=== PATIENT | female | born 1945 | race African-American/Black ===

== ENCOUNTER 2017-01-19 09:04 | Observation (INO) | payer MEDICARE, BC ==
[2017-01-19] VITALS (10 sets, daily range): BP systolic 113–132; BP diastolic 58–77; PULSE 55–80; RESP 15–20; TEMP 98.3–98.6; O2SAT 94–100
[~2017-01-19] VITALS: Ht 160 cm; Wt 63.0 kg
[~2017-01-19 09:04] MED LIST: GLIM1 PO; HCTZ25 PO; LOSA25TA31 PO; MECL-62 PO; METF500 PO; OMEP20TA39 PO; ROSU40 PO; [UNRECOGNIZED DRUG - OTHER] TOPICAL
[2017-01-19] MEDS ORDERED: SODIUM CHLORIDE 0.9% FLUSH 10 ML FLUSH IVF PRN (11:15)
--- NOTE | 2017-01-19 11:16 | PD ---
HPI Chief Complaint: lightheadedness Time Seen by Provider: 11:05 Travel History International Travel<30 days: No Contact w/Intl Traveler<30days: No Traveled to known affect area: No History of Present Illness HPI This is a 71-year-old female who reports a history of coronary artery disease status post stenting on December 17, 2016, diabetes, hypertension, hyperlipidemia. She presents via EMS for evaluation of lightheadedness. She reports that this morning she has been experiencing lightheadedness which is reproduced when standing or walking. Seems to be improved when she is sitting or lying down. She had fleeting episodes of similar symptoms yesterday but less severe. She does also endorse and occasional left-sided chest pain on a essentially daily basis for several months. Currently not experiencing pain but she did experience pain this morning for approximately 10 minutes. She denies any vertigo sensation although she has had vertigo in the past and this feels different. She denies any shortness of breath, nausea or vomiting, abdominal pain, flank pain, cough or congestion, lower extremity edema or pain. She does note that she had diarrhea for 2 days, resolved yesterday. She notes that she is currently on vacation from [place], arrived 4 days ago, drove. She also notes to review of systems that she has had a pulsating frontal head discomfort for 4 months on a daily basis. Currently on Plavix and aspirin on a daily basis. She has no other complaints at this time. PFSH Past Medical History High Cholesterol: Yes Diabetes: Yes Diminished Hearing: No GERD: Yes Hiatal Hernia: Yes Hypertension: Yes Musculoskeletal: Yes (BILATERAL LEG PAIN CHRONIC) Menopausal: Yes Past Surgical History Appendectomy: Yes Cholecystectomy: Yes Hysterectomy: Yes Social History Alcohol Use: Yes (OCCAS) Tobacco Use: No Substance Use: No Allergies-Medications (Allergen,Severity, Reaction): Coded Allergies: Penicillin (Unverified Allergy, Unknown, 01/19/17) Reported Meds & Prescriptions Reported Meds & Active Scripts Active Reported Metformin (Metformin HCl) 500 Mg Tab 500 Mg PO DAILY With a meal Omeprazole 40 Mg Cap 40 Mg PO DAILY Losartan (Losartan Potassium) 25 Mg Tab 25 Mg PO DAILY Glimepiride 2 Mg Tab 2 Mg PO DAILY Take with breakfast or first main meal Review of Systems Except as stated in HPI: all other systems reviewed are Neg Physical Exam Narrative GENERAL: Pleasant well-developed well-nourished female in no acute distress currently resting comfortably on ambulance hallway stretcher. SKIN: Warm and dry. HEAD: Atraumatic. Normocephalic. EYES: Pupils equal and round. No scleral icterus. No injection or drainage. ENT: No nasal bleeding or discharge. Mucous membranes pink and moist. NECK: Trachea midline. No JVD. CARDIOVASCULAR: Regular rate and rhythm. No murmur appreciated. RESPIRATORY: No accessory muscle use. Clear to auscultation. Breath sounds equal bilaterally. GASTROINTESTINAL: Abdomen soft, non-tender, nondistended. Hepatic and splenic margins not palpable. MUSCULOSKELETAL: No obvious deformities. No edema. NEUROLOGICAL: Awake and alert. No obvious cranial nerve deficits. Motor grossly within normal limits. Normal speech. PSYCHIATRIC: Appropriate mood and affect; insight and judgment normal. Data Data Last Documented VS Vital Signs Date Time Temp Pulse Resp B/P Pulse Ox O2 Delivery O2 Flow Rate FiO2 01/19/17 13:50 59 15 124/60 67 18 129/64 59 18 132/71 01/19/17 13:30 100 Room Air 01/19/17 13:26 98.3 Orders Electrocardiogram (01/19/17 11:07) Basic Metabolic Panel (Bmp) (01/19/17 11:07) Ckmb (Isoenzyme) Profile (01/19/17 11:07) Complete Blood Count With Diff (01/19/17 11:07) Magnesium (Mg) (01/19/17 11:07) Prothrombin Time / Inr (Pt) (01/19/17 11:07) Act Partial Throm Time (Ptt) (01/19/17 11:07) Troponin I (01/19/17 11:07) Chest, Single Ap (01/19/17 11:07) Ecg Monitoring (01/19/17 11:07) Bilateral Bp Monitoring (01/19/17 11:07) Iv Access Insert/Monitor (01/19/17 11:07) Oximetry (01/19/17 11:07) Oxygen Administration (01/19/17 11:07) Sodium Chloride 0.9% Flush (Ns Flush) (01/19/17 11:15) Ct Brain W/O Iv Contrast(Rout) (01/19/17 ) Sodium Chlor 0.9% 1000 Ml Inj (Ns 1000 M (01/19/17 12:03) Potassium Chloride (Kcl) (01/19/17 13:30) Diet Diabetic (01/19/17 Lunch) Pantoprazole (Protonix) (01/20/17 09:00) Place In Observation (01/19/17 ) Code Status (01/19/17 14:07) Vital Signs (Adult) Q4H (01/19/17 14:07) Activity Oob Ad Nadeen (01/19/17 14:07) Bedside Glucose LETI.AC&HS (01/19/17 14:07) Production Support Supervisor / Telemetry .CONTINUOUS (01/19/17 14:07) Intake + Output LETI.QSHIFT (01/19/17 14:07) ^ Notify Dr: Other (01/19/17 14:07) Diet 1800 Ada Cons Carb (01/19/17 Dinner) Diet Heart Healthy (01/19/17 Dinner) Sodium Chlor 0.9% 1000 Ml Inj (Ns 1000 M (01/19/17 14:07) Sodium Chloride 0.9% Flush (Ns Flush) (01/19/17 14:15) Sodium Chloride 0.9% Flush (Ns Flush) (01/19/17 21:00) Acetaminophen (Tylenol) (01/19/17 14:15) Ondansetron Inj (Zofran Inj) (01/19/17 14:15) Bisacodyl Supp (Dulcolax Supp) (01/19/17 14:15) Docusate Sodium (Colace) (01/19/17 14:15) Basic Metabolic Panel (Bmp) (01/20/17 06:00) Complete Blood Count With Diff (01/20/17 06:00) Creatine Kinase (Cpk) (01/19/17 14:07) Creatine Kinase (Cpk) (01/19/17 20:07) Troponin I (01/19/17 14:07) Troponin I (01/19/17 20:07) Prothrombin Time / Inr (Pt) (01/20/17 06:00) Urinalysis - C+S If Indicated (01/19/17 14:07) Lipase (01/20/17 06:00) Hepatic Functional Panel (01/20/17 06:00) Resp Oxygen Segun C Titrat 1-4 L (01/19/17 ) Pt Request For Service (01/19/17 14:07) Ot Request For Service (01/19/17 14:07) Case Management Consult (01/19/17 14:07) Enoxaparin Inj (Lovenox Inj) (01/19/17 15:00) Naloxone Inj (Narcan Inj) (01/19/17 14:15) Insulin Human Reg Supp Scale (Novolin R (01/19/17 16:00) Admit Order (Ed Use Only) (01/19/17 14:10) Labs Laboratory Tests Test 01/19/17 12:45 White Blood Count 6.3 TH/MM3 Red Blood Count 4.33 MIL/MM3 Hemoglobin 12.6 GM/DL Hematocrit 36.9 % Mean Corpuscular Volume 85.3 FL Mean Corpuscular Hemoglobin 29.1 PG Mean Corpuscular Hemoglobin 34.1 % Concent Red Cell Distribution Width 14.7 % Platelet Count 235 TH/MM3 Mean Platelet Volume 9.6 FL Neutrophils (%) (Auto) 63.9 % Lymphocytes (%) (Auto) 25.2 % Monocytes (%) (Auto) 8.6 % Eosinophils (%) (Auto) 1.2 % Basophils (%) (Auto) 1.1 % Neutrophils # (Auto) 4.0 TH/MM3 Lymphocytes # (Auto) 1.6 TH/MM3 Monocytes # (Auto) 0.5 TH/MM3 Eosinophils # (Auto) 0.1 TH/MM3 Basophils # (Auto) 0.1 TH/MM3 CBC Comment DIFF FINAL Differential Comment Prothrombin Time 10.4 SEC Prothromb Time International 0.9 RATIO Ratio Activated Partial 25.0 SEC Thromboplast Time Sodium Level 142 MEQ/L Potassium Level 3.0 MEQ/L Chloride Level 109 MEQ/L Carbon Dioxide Level 23.3 MEQ/L Anion Gap 10 MEQ/L Blood Urea Nitrogen 11 MG/DL Creatinine 0.80 MG/DL Estimat Glomerular Filtration 86 ML/MIN Rate Random Glucose 104 MG/DL Calcium Level 8.8 MG/DL Magnesium Level 1.9 MG/DL Total Creatine Kinase 83 U/L Troponin I LESS THAN 0.02 NG/ML MDM Medical Decision Making Medical Screen Exam Complete: Yes Emergency Medical Condition: Yes Medical Record Reviewed: Yes Interpretation(s) Chest x-ray reveals hiatal hernia, no acute abnormalities CT brain no acute abnormalities CBC unremarkable BMP Troponin CK Differential Diagnosis Orthostatic hypotension, vasovagal reaction, electrolyte abnormality, dehydration, gastroenteritis, ACS, angina, pulmonary embolism Narrative Course This is a 71-year-old female who resents with the chief complaint of lightheadedness when standing or ambulating, mild left-sided chest discomfort which she has had on a daily basis for several months, most recently this morning, as well as a pulsating frontal head pain which she has been experiencing for several months, most recently this morning. She does endorse 2 days of diarrhea, resolved yesterday. Physical examination is reassuring. The patient's lab work and imaging studies abandoned reviewed. She is hypokalemic, history of hypokalemia, takes potassium supplements at home. She received IV fluids and Zofran and we attempted to ambulate her however she is extremely lightheaded when she stands up. Therefore she'll be admitted for observation. Procedures EKG Prior to Arrival: Yes Diagnosis Primary Impression: Pre-syncope Admitting Information Admitting Physician Requests: Observation Jean Valladares Jan 19, 2017 11:16
--- NOTE | 2017-01-19 11:57 | RADRPT ---
EXAM DATE/TIME: 01/19/2017 11:24 [facility] COMPARISON: CHEST SINGLE AP, April 07, 2015, 11:30. INDICATIONS : Shortness of breath. MEDICAL HISTORY : Cardiovascular disease. Chronic obstructive pulmonary disease. SURGICAL HISTORY : None. ENCOUNTER: Initial ACUITY: 1 day PAIN SCORE: 5/10 LOCATION: Bilateral chest FINDINGS: Single AP view of the chest. The lungs are clear. Moderate size hiatal hernia. Cardiomediastinal silh ouette within normal limits. No evidence of pleural effusion or pneumothorax. Surgical clips in the r ight upper quadrant of the abdomen. CONCLUSION: Hiatal hernia. No acute cardiopulmonary disease identified. Matt Guillen MD on January 19, 2017 at 11:54 Board Certified Radiologist. This report was verified electronically.
--- NOTE | 2017-01-19 11:58 | RADRPT ---
EXAM DATE/TIME: 01/19/2017 11:28 [facility] COMPARISON: CT BRAIN W/O CONTRAST, April 07, 2015, 12:12. INDICATIONS : Episode of dizziness with inability to ambulate . RADIATION DOSE: 37.47 CTDIvol (mGy) MEDICAL HISTORY : Hypertension. Diabetes mellitus type 2. SURGICAL HISTORY : None. ENCOUNTER: Initial ACUITY: 1 day PAIN SCALE: 5/10 LOCATION: cranial TECHNIQUE: Multiple contiguous axial images were obtained of the head. Using automated exposure control and adj ustment of the mA and/or kV according to patient size, radiation dose was kept as low as reasonably a chievable to obtain optimal diagnostic quality images. FINDINGS: CEREBRUM: The ventricles are normal for age. No evidence of midline shift, mass lesion, hemorrhage or acute in farction. No extra-axial fluid collections are seen. POSTERIOR FOSSA: The cerebellum and brainstem are intact. The 4th ventricle is midline. The cerebellopontine angle i s unremarkable. EXTRACRANIAL: The visualized portion of the orbits is intact. SKULL: The calvaria is intact. No evidence of skull fracture. CONCLUSION: No acute intracranial findings. Matt Guillen MD on January 19, 2017 at 11:55 Board Certified Radiologist. This report was verified electronically.
[2017-01-19] MEDS ORDERED: SODIUM CHLOR 0.9% 1000 ML INJ 1,000 ML IV SCH (12:03)
[2017-01-19 13:00] LABS: BASOPHIL # 0.1 TH/MM3 (0-0.2); BASOPHIL % 1.1 % (0.0-2.0); EOSINOPHIL # 0.1 TH/MM3 (0-0.4); EOSINOPHIL % 1.2 % (0.0-4.0); HEMATOCRIT 36.9 % (35.0-46.0); HEMO FLAGS DIFF FINAL; LYMPH % 25.2 % (9.0-44.0); LYMPHOCYTE # 1.6 TH/MM3 (1.0-4.8); MEAN CELL VOLUME 85.3 FL (80.0-100.0); MEAN CORPUSCULAR HEMOGLOBIN 29.1 PG (27.0-34.0); MEAN CORPUSCULAR HGB CONC 34.1 % (32.0-36.0); MONO % 8.6 % (0.0-8.0); NEUT % 63.9 % (16.0-70.0); PLATELET COUNT 235 TH/MM3 (150-450); RED BLOOD COUNT 4.33 MIL/MM3 (4.00-5.30); RED CELL DISTRIBUTION WIDTH 14.7 % (11.6-17.2); WHITE BLOOD COUNT 6.3 TH/MM3 (4.0-11.0)
[2017-01-19 13:07] LABS: INTERNATIONAL NORMALIZED RATIO 0.9 RATIO; PROTHROMBIN TIME - PATIENT 10.4 SEC (9.8-11.6)
[2017-01-19 13:14] LABS: ANION GAP 10 MEQ/L (5-15); BICARBONATE 23.3 MEQ/L (21.0-32.0); BLOOD UREA NITROGEN 11 MG/DL (7-18); CHLORIDE 109 MEQ/L (98-107); GLOMERULAR FILTRATION RATE 86 ML/MIN (>89); MAGNESIUM 1.9 MG/DL (1.5-2.5); SODIUM (NA) 142 MEQ/L (136-145)
[2017-01-19 13:21] LABS: CREATINE KINASE 83 U/L (26-192)
[2017-01-19] MEDS ORDERED: POTASSIUM CHLORIDE 20 MEQ CONTROLLED RELEASE TAB PO ONE (13:30)
[2017-01-19] MEDS ORDERED: METF500T PO (13:38)
[2017-01-19] MEDS ORDERED: OMEP40CA2 PO (13:38)
[2017-01-19] MEDS ORDERED: GLIM2TAB PO (13:38)
[2017-01-19] MEDS ORDERED: LOSA25TA PO (13:38)
[2017-01-19] MEDS ORDERED: BISACODYL 10 MG SUPP PR PRN (14:15)
[2017-01-19] MEDS ORDERED: NALOXONE HCL 0.4 MG/ML AMP IV PRN (14:15)
[2017-01-19] MEDS ORDERED: SODIUM CHLORIDE 0.9% FLUSH 10 ML FLUSH IV FLUSH PRN (14:15)
[2017-01-19] MEDS ORDERED: ONDANSETRON HCL 4 MG/2 ML VIAL IVP PRN (14:15)
[2017-01-19] MEDS ORDERED: ACETAMINOPHEN 325 MG TAB PO PRN (14:15)
--- NOTE | 2017-01-19 14:16 | HHI.HP ---
[facility] Service [place] [facility] Primary Care Physician Non-Staff Admission Diagnosis Diagnoses: Chief Complaint: Lightheadedness Travel History International Travel<30 Days: No Contact w/Intl Traveler <30 Da: No Traveled to Known Affected Are: No History of Present Illness This is a 71-year-old female who reports a history of coronary artery disease status post stenting on December 17, 2016, diabetes, hypertension, hyperlipidemia. She presents via EMS for evaluation of lightheadedness. She reports that this morning she has been experiencing lightheadedness which is reproduced when standing or walking. Seems to be improved when she is sitting or lying down. She had fleeting episodes of similar symptoms yesterday but less severe. She does also endorse and occasional left-sided chest pain on a essentially daily basis for several months. Currently not experiencing pain but she did experience pain this morning for approximately 10 minutes. She denies any vertigo sensation although she has had vertigo in the past and this feels different. She denies any shortness of breath, nausea or vomiting, abdominal pain, flank pain, cough or congestion, lower extremity edema or pain. She does note that she had diarrhea for 2 days, resolved yesterday. She notes that she is currently on vacation from [place], arrived 4 days ago, drove. She also notes to review of systems that she has had a pulsating frontal head discomfort for 4 months on a daily basis. Currently on Plavix and aspirin on a daily basis. She has no other complaints at this time. Seen in the room in the presence of her she is stable but states she has dizziness when moves her head from side to side no other symptomatology. had some episodes very brief lasts for seconds but now has weakness. Past Family Social History Past Medical History DM II Hypertension Hyperlipidemia GERD Hiatal Hernia Bilateral leg pain chronic diagnosis CAD with status post PCI and stent placement Past Surgical History Appendectomy Cholecystectomy JOANNA Reported Medications Reported Meds & Active Scripts Active Reported Metformin (Metformin HCl) 500 Mg Tab 500 Mg PO DAILY With a meal Omeprazole 40 Mg Cap 40 Mg PO DAILY Losartan (Losartan Potassium) 25 Mg Tab 25 Mg PO DAILY Glimepiride 2 Mg Tab 2 Mg PO DAILY Take with breakfast or first main meal Allergies: Coded Allergies: Penicillin (Unverified Allergy, Unknown, 01/19/17) Active Ordered Medications Current Medications Medications (Trade) Dose Ordered Sig/Alessio Route Start Time Stop Time Status Last Admin (NS Flush) 2 ml UNSCH PRN IVF 01/19/17 11:15 Non-Formulary Medication 40 mg DAILY PO 01/20/17 09:00 UNV Family History Mother with DM II, Father with Stroke, Brothers and Sisters with DM II, Brother with Brain Cancer. Social History Lives with her Alcohol use occasional Denies other toxic habits. Physical Exam Vital Signs Vital Signs Date Time Temp Pulse Resp B/P Pulse Ox O2 Delivery O2 Flow Rate FiO2 01/19/17 13:50 59 15 124/60 67 18 129/64 59 18 132/71 01/19/17 13:30 56 16 125/58 100 Room Air 01/19/17 13:26 98.3 56 16 125/58 100 Physical Exam GENERAL: No acute distress. SKIN: Warm and dry. HEAD: Atraumatic. Normocephalic. EYES: Pupils equal and round. No scleral icterus. No injection or drainage. ENT: No nasal bleeding or discharge. Mucous membranes pink and moist. NECK: Trachea midline. No JVD. CARDIOVASCULAR: Regular rate and rhythm. No murmur appreciated. RESPIRATORY: No accessory muscle use. Clear to auscultation. Breath sounds equal bilaterally. GASTROINTESTINAL: Abdomen soft, non-tender, nondistended. Hepatic and splenic margins not palpable. MUSCULOSKELETAL: No obvious deformities. No edema. NEUROLOGICAL: Awake and alert. No obvious cranial nerve deficits. Motor grossly within normal limits. Normal speech. PSYCHIATRIC: Appropriate mood and affect; insight and judgment normal. Laboratory Laboratory Tests Test 01/19/17 12:45 White Blood Count 6.3 Red Blood Count 4.33 Hemoglobin 12.6 Hematocrit 36.9 Mean Corpuscular Volume 85.3 Mean Corpuscular Hemoglobin 29.1 Mean Corpuscular Hemoglobin 34.1 Concent Red Cell Distribution Width 14.7 Platelet Count 235 Mean Platelet Volume 9.6 Neutrophils (%) (Auto) 63.9 Lymphocytes (%) (Auto) 25.2 Monocytes (%) (Auto) 8.6 Eosinophils (%) (Auto) 1.2 Basophils (%) (Auto) 1.1 Neutrophils # (Auto) 4.0 Lymphocytes # (Auto) 1.6 Monocytes # (Auto) 0.5 Eosinophils # (Auto) 0.1 Basophils # (Auto) 0.1 CBC Comment DIFF FINAL Differential Comment Prothrombin Time 10.4 Prothromb Time International 0.9 Ratio Activated Partial 25.0 Thromboplast Time Sodium Level 142 Potassium Level 3.0 Chloride Level 109 Carbon Dioxide Level 23.3 Anion Gap 10 Blood Urea Nitrogen 11 Creatinine 0.80 Estimat Glomerular Filtration 86 Rate Random Glucose 104 Calcium Level 8.8 Magnesium Level 1.9 Total Creatine Kinase 83 Troponin I LESS THAN 0.02 Result Diagram: 01/19/17 1245 01/19/17 1245 Imaging Last Impressions Chest X-Ray 01/19/17 1107 Signed Impressions: Service Date/Time: Thursday, January 19, 2017 11:24 - CONCLUSION: Hiatal hernia. No acute cardiopulmonary disease identified. Matt Guillen MD Head CT 01/19/17 0000 Signed Impressions: Service Date/Time: Thursday, January 19, 2017 11:28 - CONCLUSION: No acute intracranial findings. Matt Guillen MD Assessment and Plan Problem List: (1) Pre-syncope ICD Code: R55 Status: Acute Assessment and Plan 1. Pre Syncope patient has been hospitalized, asked for Cardiac Enzymes, cardiac Monitoring Oxygen as needed. probable vasovagal symptoms. IV fluids. 2. Dizziness probable peripheral vertigo, giving her Meclizine and follow with PT and OT 3. Weakness on hold antihypertensives, asked for PT and OT 4. CAD status post PCI and stent placement. Cardiac enzymes, Cardiac monitoring. Echocardiogram, Chest x ray Hiatal Hernia, CT brain no acute abnormalities, continue aspirin and Plavix. 5. Hypertension controlled on hold anti hypertensives 6. Hyperlipidemia continue home medicines 7. DM II on hold Metformin and glipizide and follow with sliding scale. 8. GERD on PPIs 9. Bilateral leg pain chronic diagnosis continue home medicines 10. Hypokalemia replaced and following. DVT prophylaxis with Lovenox. Code Status Full code Discussed Condition With Patient and her will follow in am for discharge. Physician Certification 2 Midnight Certification Type: Admission for Inpatient Services Order for Inpatient Services The services are ordered in accordance with Medicare regulations or non- Medicare payer requirements, as applicable. In the case of services not specified as inpatient-only, they are appropriately provided as inpatient services in accordance with the 2-midnight benchmark. Estimated LOS (days): 1 days is the estimated time the patient will need to remain in the hospital, assuming treatment plan goals are met and no additional complications. Post-Hospital Plan: Not yet determined Froylan Duncan MD Jan 19, 2017 14:16
--- NOTE | 2017-01-19 14:29 | PD ---
Data Data Last Documented VS Vital Signs Date Time Temp Pulse Resp B/P Pulse Ox O2 Delivery O2 Flow Rate FiO2 01/19/17 13:50 59 15 124/60 67 18 129/64 59 18 132/71 01/19/17 13:30 100 Room Air 01/19/17 13:26 98.3 Orders Electrocardiogram (01/19/17 11:07) Basic Metabolic Panel (Bmp) (01/19/17 11:07) Ckmb (Isoenzyme) Profile (01/19/17 11:07) Complete Blood Count With Diff (01/19/17 11:07) Magnesium (Mg) (01/19/17 11:07) Prothrombin Time / Inr (Pt) (01/19/17 11:07) Act Partial Throm Time (Ptt) (01/19/17 11:07) Troponin I (01/19/17 11:07) Chest, Single Ap (01/19/17 11:07) Ecg Monitoring (01/19/17 11:07) Bilateral Bp Monitoring (01/19/17 11:07) Iv Access Insert/Monitor (01/19/17 11:07) Oximetry (01/19/17 11:07) Oxygen Administration (01/19/17 11:07) Sodium Chloride 0.9% Flush (Ns Flush) (01/19/17 11:15) Ct Brain W/O Iv Contrast(Rout) (01/19/17 ) Sodium Chlor 0.9% 1000 Ml Inj (Ns 1000 M (01/19/17 12:03) Potassium Chloride (Kcl) (01/19/17 13:30) Diet Diabetic (01/19/17 Lunch) Pantoprazole (Protonix) (01/20/17 09:00) Place In Observation (01/19/17 ) Code Status (01/19/17 14:07) Vital Signs (Adult) Q4H (01/19/17 14:07) Activity Oob Ad Nadeen (01/19/17 14:07) Bedside Glucose LETI.AC&HS (01/19/17 14:07) Fiberglass Insulation Installer / Telemetry .CONTINUOUS (01/19/17 14:07) Intake + Output LETI.QSHIFT (01/19/17 14:07) ^ Notify Dr: Other (01/19/17 14:07) Diet 1800 Ada Cons Carb (01/19/17 Dinner) Diet Heart Healthy (01/19/17 Dinner) Sodium Chlor 0.9% 1000 Ml Inj (Ns 1000 M (01/19/17 14:07) Sodium Chloride 0.9% Flush (Ns Flush) (01/19/17 14:15) Sodium Chloride 0.9% Flush (Ns Flush) (01/19/17 21:00) Acetaminophen (Tylenol) (01/19/17 14:15) Ondansetron Inj (Zofran Inj) (01/19/17 14:15) Bisacodyl Supp (Dulcolax Supp) (01/19/17 14:15) Docusate Sodium (Colace) (01/19/17 14:15) Basic Metabolic Panel (Bmp) (01/20/17 06:00) Complete Blood Count With Diff (01/20/17 06:00) Creatine Kinase (Cpk) (01/19/17 14:07) Creatine Kinase (Cpk) (01/19/17 20:07) Troponin I (01/19/17 14:07) Troponin I (01/19/17 20:07) Prothrombin Time / Inr (Pt) (01/20/17 06:00) Urinalysis - C+S If Indicated (01/19/17 14:07) Lipase (01/20/17 06:00) Hepatic Functional Panel (01/20/17 06:00) Resp Oxygen Segun C Titrat 1-4 L (01/19/17 ) Pt Request For Service (01/19/17 14:07) Ot Request For Service (01/19/17 14:07) Case Management Consult (01/19/17 14:07) Enoxaparin Inj (Lovenox Inj) (01/19/17 15:00) Naloxone Inj (Narcan Inj) (01/19/17 14:15) Insulin Human Reg Supp Scale (Novolin R (01/19/17 16:00) Admit Order (Ed Use Only) (01/19/17 14:10) Labs Laboratory Tests Test 01/19/17 12:45 White Blood Count 6.3 TH/MM3 Red Blood Count 4.33 MIL/MM3 Hemoglobin 12.6 GM/DL Hematocrit 36.9 % Mean Corpuscular Volume 85.3 FL Mean Corpuscular Hemoglobin 29.1 PG Mean Corpuscular Hemoglobin 34.1 % Concent Red Cell Distribution Width 14.7 % Platelet Count 235 TH/MM3 Mean Platelet Volume 9.6 FL Neutrophils (%) (Auto) 63.9 % Lymphocytes (%) (Auto) 25.2 % Monocytes (%) (Auto) 8.6 % Eosinophils (%) (Auto) 1.2 % Basophils (%) (Auto) 1.1 % Neutrophils # (Auto) 4.0 TH/MM3 Lymphocytes # (Auto) 1.6 TH/MM3 Monocytes # (Auto) 0.5 TH/MM3 Eosinophils # (Auto) 0.1 TH/MM3 Basophils # (Auto) 0.1 TH/MM3 CBC Comment DIFF FINAL Differential Comment Prothrombin Time 10.4 SEC Prothromb Time International 0.9 RATIO Ratio Activated Partial 25.0 SEC Thromboplast Time Sodium Level 142 MEQ/L Potassium Level 3.0 MEQ/L Chloride Level 109 MEQ/L Carbon Dioxide Level 23.3 MEQ/L Anion Gap 10 MEQ/L Blood Urea Nitrogen 11 MG/DL Creatinine 0.80 MG/DL Estimat Glomerular Filtration 86 ML/MIN Rate Random Glucose 104 MG/DL Calcium Level 8.8 MG/DL Magnesium Level 1.9 MG/DL Total Creatine Kinase 83 U/L Troponin I LESS THAN 0.02 NG/ML MDM Supervised Visit with KIMBERLY: Yes Narrative Course I, Dr. Carvalho, have reviewed the advance practice practioner's documentation and am in agreement, met with the patient face to face, made the diagnosis, and the medical decision making was done by me. *My assessment and Findings: 71-year-old female with history of CAD with previous PCI, DM, HTN, HLD here with several episodes of presyncope, most noticeable when standing or ambulating. Better when she is lying down. She is asymptomatic at this time. She also notes a slight headache. She is currently anticoagulated on aspirin and Plavix. Exam is unremarkable but she is quite symptomatic when attempting to ambulate. Orthostatic blood pressures were checked and were unremarkable. Patient's laboratory workup unremarkable. Her EKG does show some new T-wave inversions compared to her previous EKG but troponin negative. Given her multiple presyncopal episodes today and presyncope on standing in the ER patient will be admitted for observation. Diagnosis Primary Impression: Pre-syncope Dana Carvalho MD Jan 19, 2017 14:29
[2017-01-19] MEDS ORDERED: DEXTROSE 50% IN WATER 50 ML VIAL(D50) IV PUSH PRN (15:45)
[2017-01-19] MEDS ORDERED: GLUCAGON 1 MG/ML VIAL OTHER PRN (15:45)
[2017-01-19] MEDS ORDERED: PILL SPLITTER OTHER PRN (15:45)
[2017-01-19] MEDS: INSULIN NovoLIN REGULAR SUPPLEMENTAL SCALE SQ SCH ×2 (16:00→21:00)
[2017-01-19 16:13] LABS: CREATINE KINASE 74 U/L (26-192)
[2017-01-19] MEDS: MECLIZINE HCL 25 MG TAB PO SCH ×2 (16:15→21:14)
[2017-01-19] MEDS: SODIUM CHLOR 0.9% 1000 ML INJ 1,000 ML IV SCH (16:15)
[2017-01-19] MEDS: ENOXAPARIN SODIUM 40 MG/0.4 ML SYRINGE SQ SCH (16:16)
[2017-01-19] MEDS: ASPIRIN 81 MG CHEW TAB CHEW SCH (17:01)
[2017-01-19] MEDS: DOCUSATE SODIUM 100 MG CAP PO SCH ×2 (17:01→21:00)
[2017-01-19] MEDS: CLOPIDOGREL 75 MG TAB PO SCH (17:01)
[2017-01-19] MEDS: SERTRALINE HCL 50 MG TAB PO SCH (17:01)
--- NOTE | 2017-01-19 19:04 | EC ---
Study Study Date:01/19/2017 STUDY CONCLUSIONS SUMMARY - Left ventricle: The cavity size was normal. Wall thickness was normal. Systolic function was normal. The estimated ejection fraction was in the range of 55% to 60%. Wall motion was normal; there were no regional wall motion abnormalities. - Mitral valve: Valve area by pressure half-time: 2.16cm^2. - Tricuspid valve: Moderate-severe regurgitation. - Pulmonary arteries: PA peak pressure: 36mm Hg (S). If LV function is below 40, please consider prescribing an ACEI or ARB or document rationale for non-use. PROCEDURE DATA STUDY STATUS: Elective. Procedure: Transthoracic echocardiography. Image quality was good. Scanning was performed from the parasternal, apical, and subcostal acoustic windows. Study completion: The patient tolerated the procedure well. Transthoracic echocardiography. M-mode, complete 2D, complete spectral Doppler, and color Doppler. Patient status: Inpatient. CARDIAC ANATOMY LEFT VENTRICLE: The cavity size was normal. Wall thickness was normal. Systolic function was normal. The estimated ejection fraction was in the range of 55% to 60%. Wall motion was normal; there were no regional wall motion abnormalities. AORTIC VALVE: Trileaflet; normal thickness leaflets. Doppler: Transvalvular velocity was within the normal range. There was no stenosis. Trace to mild regurgitation. AORTA: Aortic root: The aortic root was normal in size. MITRAL VALVE: Structurally normal valve. Doppler: Transvalvular velocity was within the normal range. There was no evidence for stenosis. Trace to mild regurgitation. Valve area by pressure half-time: 2.16cm^2. Peak gradient: 3mm Hg (D). LEFT ATRIUM: The atrium was normal in size. RIGHT VENTRICLE: The cavity size was normal. Wall thickness was normal. PULMONIC VALVE: Doppler: Transvalvular velocity was within the normal range. There was no evidence for stenosis. No regurgitation. TRICUSPID VALVE: Structurally normal valve. Doppler: Transvalvular velocity was within the normal range. Moderate-severe regurgitation. PULMONARY ARTERY: The main pulmonary artery was normal-sized. Systolic pressure was within the normal range. RIGHT ATRIUM: The atrium was normal in size. PERICARDIUM: There was no pericardial effusion. SYSTEMIC VEINS: Inferior vena cava: The vessel was normal in size. BASIC MEASUREMENTS ADULT Normal Left ventricle LV internal dimension, ED, chordal level, *34.1 mm 43-52 PLAX LV internal dimension, ES, chordal level, 25.9 mm 23-38 PLAX Fractional shortening, chordal level, PLAX *24 % >29 LV posterior wall thickness, ED 9.26 mm IVS/LVPW ratio, ED 1.29 <1.3 Ventricular septum Septal thickness, ED 11.9 mm Aortic valve Leaflet separation 22 mm 15-26 Right ventricle RV internal dimension, ED, PLAX 32.3 mm 19-38 BASIC MEASUREMENTS ADULT Normal Aortic valve Leaflet separation 22 mm 15-26 Aorta Root diameter, ED 26 mm 20-37 Left atrium Anterior-posterior dimension, ES *46 mm 19-40 LA/aortic root ratio 1.77 DOPPLER MEASUREMENTS ADULT Normal Main pulmonary artery Pressure, S *36 mm Hg =30 Aortic valve Regurgitant velocity, ED 370 cm/s Regurgitant deceleration 1560 cm/s^2 Regurgitant pressure half-time 694 ms Regurgitant gradient, ED 55 mm Hg Mitral valve Peak E-wave velocity 84.9 cm/s Peak A-wave velocity 92.3 cm/s Pressure half-time 102 ms Peak gradient, D 3 mm Hg Peak E/A ratio 0.9 Valve area, pressure half-time 2.16 cm^2 Tricuspid valve Regurgitant peak velocity 255 cm/s Peak RV-RA gradient, S 26 mm Hg Systemic veins Estimated CVP 10 mm Hg Right ventricle RV pressure, S *36 mm Hg <30 LEGEND: Mean values are shown as u=mean value. Asterisk (*) fatima values outside specified normal range. Prepared and signed by Edouard Langley [id number]
[2017-01-19] MEDS: SODIUM CHLORIDE 0.9% FLUSH 10 ML FLUSH IV FLUSH SCH (21:00)
[2017-01-19 22:00] LABS: CREATINE KINASE 87 U/L (26-192)
--- NOTE | 2017-01-19 22:33 | EKG ---
Date Performed: 01/19/2017 Time Performed: 13:43:54 PTAGE: 71 years EKG: Sinus rhythm MODERATE T-WAVE ABNORMALITY ABNORMAL ECG PREVIOUS TRACING : 04/07/2015 11.33 Compared to prior tracing no significant change DOCTOR: Elisa Kat Interpretating Date/Time 01/19/2017 22:32:31
[2017-01-20 00:03] VITALS: BP 105/62; PULSE 64; RESP 18; TEMP 98.6; O2SAT 97
[2017-01-20] MEDS: SODIUM CHLOR 0.9% 1000 ML INJ 1,000 ML IV SCH (00:07)
[2017-01-20 03:53] VITALS: BP 110/63; PULSE 62; RESP 18; TEMP 98.9; O2SAT 97
[2017-01-20 05:37] LABS: PROTHROMBIN TIME - PATIENT 10.6 SEC (9.8-11.6)
[2017-01-20 05:54] LABS: AUTOMATED NEUTROPHIL # 3.8 TH/MM3 (1.8-7.7); BASOPHIL % 0.7 % (0.0-2.0); EOSINOPHIL # 0.2 TH/MM3 (0-0.4); HEMATOCRIT 33.7 % (35.0-46.0); HEMO FLAGS DIFF FINAL; LYMPH % 28.3 % (9.0-44.0); LYMPHOCYTE # 1.9 TH/MM3 (1.0-4.8); MEAN CELL VOLUME 87.2 FL (80.0-100.0); MEAN CORPUSCULAR HEMOGLOBIN 29.6 PG (27.0-34.0); MEAN CORPUSCULAR HGB CONC 33.9 % (32.0-36.0); MONO % 10.3 % (0.0-8.0); NEUT % 57.7 % (16.0-70.0); PLATELET COUNT 223 TH/MM3 (150-450); RED BLOOD COUNT 3.87 MIL/MM3 (4.00-5.30); RED CELL DISTRIBUTION WIDTH 15.4 % (11.6-17.2); WHITE BLOOD COUNT 6.6 TH/MM3 (4.0-11.0)
[2017-01-20] MEDS: MECLIZINE HCL 25 MG TAB PO SCH ×2 (05:58→12:58)
[2017-01-20] MEDS: INSULIN NovoLIN REGULAR SUPPLEMENTAL SCALE SQ SCH ×2 (05:59→12:59)
[2017-01-20 06:00] LABS: BICARBONATE 22.2 MEQ/L (21.0-32.0); INDIRECT BILIRUBIN 0.3 MG/DL (0.0-0.8); POTASSIUM 3.5 MEQ/L (3.5-5.1); TOTAL BILIRUBIN ADULT 0.4 MG/DL (0.2-1.0)
[2017-01-20 07:29] VITALS: BP 103/62; PULSE 64; RESP 16; TEMP 98; O2SAT 97
[2017-01-20] MEDS ORDERED: PANTOPRAZOLE SOD 40 MG DELAYED RELEASE TAB PO SCH (09:00)
[2017-01-20] MEDS: SODIUM CHLORIDE 0.9% FLUSH 10 ML FLUSH IV FLUSH SCH (09:00)
[2017-01-20] MEDS: DOCUSATE SODIUM 100 MG CAP PO SCH (09:24)
[2017-01-20] MEDS: SERTRALINE HCL 50 MG TAB PO SCH (09:24)
[2017-01-20] MEDS: CLOPIDOGREL 75 MG TAB PO SCH (09:24)
[2017-01-20] MEDS: ASPIRIN 81 MG CHEW TAB CHEW SCH (09:24)
[2017-01-20 12:03] VITALS: BP 104/59; PULSE 67; RESP 17; TEMP 98.4; O2SAT 97
--- NOTE | 2017-01-20 12:12 | HHI.PR ---
Subjective Remarks This is a 71-year-old female who reports a history of coronary artery disease status post stenting on December 17, 2016, diabetes, hypertension, hyperlipidemia. She presents via EMS for evaluation of lightheadedness. She reports that this morning she has been experiencing lightheadedness which is reproduced when standing or walking. Seems to be improved when she is sitting or lying down. She had fleeting episodes of similar symptoms yesterday but less severe. She does also endorse and occasional left-sided chest pain on a essentially daily basis for several months. Currently not experiencing pain but she did experience pain this morning for approximately 10 minutes. She denies any vertigo sensation although she has had vertigo in the past and this feels different. She denies any shortness of breath, nausea or vomiting, abdominal pain, flank pain, cough or congestion, lower extremity edema or pain. She does note that she had diarrhea for 2 days, resolved yesterday. She notes that she is currently on vacation from [place], arrived 4 days ago, drove. She also notes to review of systems that she has had a pulsating frontal head discomfort for 4 months on a daily basis. Currently on Plavix and aspirin on a daily basis. Seen in her bedroom she is improving her dizziness, stable okay to discharge home, Echocardiogram performed EF 55-60%, Tricuspid Valve with Moderate to Severe regurgitation, Pulmonary Artery 36 mm Hg. for pulmonary Hypertension, will need to follow with her Primary online marketing specialist, no acute coronary disease at this time, improving on Meclizine, will continue her Home medicines at discharge. Objective Vital Signs Date Time Temp Pulse Resp B/P Pulse Ox O2 Delivery O2 Flow Rate FiO2 01/20/17 07:29 98.0 64 16 103/62 97 01/20/17 03:53 98.9 62 18 110/63 97 01/20/17 00:03 98.6 64 18 105/62 97 01/19/17 20:10 65 01/19/17 19:46 80 121/68 97 125/77 01/19/17 19:44 98.6 62 18 113/62 94 01/19/17 18:08 61 01/19/17 17:38 98.5 59 20 120/63 99 01/19/17 15:38 96 Room Air 01/19/17 15:38 96 Room Air 01/19/17 15:38 55 18 123/71 95 Room Air 01/19/17 15:17 58 16 124/72 99 Room Air 01/19/17 13:50 59 15 124/60 67 18 129/64 59 18 132/71 01/19/17 13:30 56 16 125/58 100 Room Air 01/19/17 13:26 98.3 56 16 125/58 100 I/O 01/19/17 01/19/17 01/19/17 01/20/17 01/20/17 01/20/17 07:00 15:00 23:00 07:00 15:00 23:00 Intake Total 1100 ml Balance 1100 ml Intake IV Total 1100 ml # Voids 2 Result Diagram: 01/20/17 0440 01/20/17 0440 Imaging Last Impressions Chest X-Ray 01/19/17 1107 Signed Impressions: Service Date/Time: Thursday, January 19, 2017 11:24 - CONCLUSION: Hiatal hernia. No acute cardiopulmonary disease identified. Matt Guillen MD Head CT 01/19/17 0000 Signed Impressions: Service Date/Time: Thursday, January 19, 2017 11:28 - CONCLUSION: No acute intracranial findings. Matt Guillen MD Procedures No procedures performed Other Results Laboratory Tests Test 01/19/17 01/19/17 01/20/17 12:45 21:25 04:40 Activated Partial 25.0 SEC Thromboplast Time Magnesium Level 1.9 MG/DL Total Creatine Kinase 87 U/L Troponin I LESS THAN 0.02 NG/ML White Blood Count 6.6 TH/MM3 Red Blood Count 3.87 MIL/MM3 Hemoglobin 11.4 GM/DL Hematocrit 33.7 % Mean Corpuscular Volume 87.2 FL Mean Corpuscular Hemoglobin 29.6 PG Mean Corpuscular Hemoglobin 33.9 % Concent Red Cell Distribution Width 15.4 % Platelet Count 223 TH/MM3 Mean Platelet Volume 9.6 FL Neutrophils (%) (Auto) 57.7 % Lymphocytes (%) (Auto) 28.3 % Monocytes (%) (Auto) 10.3 % Eosinophils (%) (Auto) 3.0 % Basophils (%) (Auto) 0.7 % Neutrophils # (Auto) 3.8 TH/MM3 Lymphocytes # (Auto) 1.9 TH/MM3 Monocytes # (Auto) 0.7 TH/MM3 Eosinophils # (Auto) 0.2 TH/MM3 Basophils # (Auto) 0.0 TH/MM3 CBC Comment DIFF FINAL Differential Comment Prothrombin Time 10.6 SEC Prothromb Time International 1.0 RATIO Ratio Sodium Level 145 MEQ/L Potassium Level 3.5 MEQ/L Chloride Level 115 MEQ/L Carbon Dioxide Level 22.2 MEQ/L Anion Gap 8 MEQ/L Blood Urea Nitrogen 10 MG/DL Creatinine 0.88 MG/DL Estimat Glomerular Filtration 77 ML/MIN Rate Random Glucose 104 MG/DL Calcium Level 8.3 MG/DL Total Bilirubin 0.4 MG/DL Direct Bilirubin 0.1 MG/DL Indirect Bilirubin 0.3 MG/DL Aspartate Amino Transf 15 U/L (AST/SGOT) Alanine Aminotransferase 18 U/L (ALT/SGPT) Alkaline Phosphatase 70 U/L Total Protein 5.8 GM/DL Albumin 2.7 GM/DL Lipase 170 U/L Objective Remarks GENERAL: No acute distress. SKIN: Warm and dry. HEAD: Atraumatic. Normocephalic. EYES: Pupils equal and round. No scleral icterus. No injection or drainage. ENT: No nasal bleeding or discharge. Mucous membranes pink and moist. NECK: Trachea midline. No JVD. CARDIOVASCULAR: Regular rate and rhythm. No murmur appreciated. RESPIRATORY: No accessory muscle use. Clear to auscultation. Breath sounds equal bilaterally. GASTROINTESTINAL: Abdomen soft, non-tender, nondistended. Hepatic and splenic margins not palpable. MUSCULOSKELETAL: No obvious deformities. No edema. NEUROLOGICAL: Awake and alert. No obvious cranial nerve deficits. Motor grossly within normal limits. Normal speech. PSYCHIATRIC: Appropriate mood and affect; insight and judgment normal. Medications and IVs Current Medications Medications (Trade) Dose Ordered Sig/Alessio Route Start Time Stop Time Status Last Admin Pantoprazole Sodium 40 mg 40 mg DAILY PO 01/20/17 09:00 01/20/17 09:24 (NS 1000 ml Inj) 1,000 ml @ 100 mls/hr Q10H IV 01/19/17 14:07 01/20/17 00:07 (NS Flush) 2 ml UNSCH PRN IV FLUSH 01/19/17 14:15 (NS Flush) 2 ml BID IV FLUSH 01/19/17 21:00 01/20/17 09:00 (Tylenol) 650 mg Q4H PRN PO 01/19/17 14:15 (Zofran Inj) 4 mg Q6H PRN IVP 01/19/17 14:15 (Dulcolax Supp) 10 mg DAILY PRN NM 01/19/17 14:15 (Colace) 100 mg Q12HR PO 01/19/17 14:15 01/19/17 17:01 (Lovenox Inj) 40 mg Q24H SQ 01/19/17 15:00 01/19/17 16:16 (Narcan Inj) 0.4 mg UNSCH PRN IV 01/19/17 14:15 (Aspirin Chew) 81 mg DAILY CHEW 01/19/17 15:15 01/20/17 09:24 (Plavix) 75 mg DAILY PO 01/19/17 15:15 01/20/17 09:24 (Zoloft) 25 mg DAILY PO 01/19/17 15:15 01/20/17 09:24 (Antivert) 12.5 mg Q8HR PO 01/19/17 15:30 01/20/17 05:58 (D50w (Vial) Inj) 25 ml UNSCH PRN IV PUSH 01/19/17 15:45 (Glucagon Inj) 1 mg UNSCH PRN OTHER 01/19/17 15:45 (Pill Splitter) 1 ea UNSCH PRN OTHER 01/19/17 15:45 A/P Problem List: (1) Pre-syncope ICD Code: R55 Assessment and Plan 1. Pre Syncope patient has been hospitalized, asked for Cardiac Enzymes, cardiac Monitoring Oxygen as needed. probable vasovagal symptoms. IV fluids. the patient improved no clear if was related to vasovagal or has Peripheral vertigo she is improving with Meclizine, she also has controlled blood pressure on low side off anti hypertensives could be related to over medication will need to follow for titration with PCP. 2. Dizziness probable peripheral vertigo, giving her Meclizine will continue at home. 3. Weakness on hold antihypertensives, asked for PT and OT 4. CAD status post PCI and stent placement. Cardiac enzymes, Cardiac monitoring. Echocardiogram, Chest x ray Hiatal Hernia, CT brain no acute abnormalities, continue aspirin and Plavix. Echocardiogram EF 55-60%, Tricuspid Valve moderate to severe regurgitation Pulmonary artery pressure 36 mm Hg. will need to follow with her Primary online marketing specialist. 5. Hypertension controlled on hold anti hypertensives will continue on Hold and will need to titrate with Primary Care Physician and 6. Hyperlipidemia continue home medicines 7. DM II controlled blood sugar on no medicines. could be a reason for her symptomatology. 8. GERD on PPIs 9. Bilateral leg pain chronic diagnosis continue home medicines 10. Hypokalemia replaced and following. DVT prophylaxis with Lovenox. Code Status Full code Discussed Condition With Patient at this time in the room. Froylan Duncan MD Jan 20, 2017 12:12
[2017-01-20] MEDS ORDERED: MECL12.574 PO (12:41)
--- NOTE | 2017-01-20 12:54 | HHI.DS ---
Discharge Summary Admission Date Jan 19, 2017 at 14:13 Discharge Date: Jan 20, 2017 Admitting Diagnosis (1) Pre-syncope ICD Code: R55 Diagnosis: Principal Procedures No procedures performed Brief History - From Admission This is a 71-year-old female who reports a history of coronary artery disease status post stenting on December 17, 2016, diabetes, hypertension, hyperlipidemia. She presents via EMS for evaluation of lightheadedness. She reports that this morning she has been experiencing lightheadedness which is reproduced when standing or walking. Seems to be improved when she is sitting or lying down. She had fleeting episodes of similar symptoms yesterday but less severe. She does also endorse and occasional left-sided chest pain on a essentially daily basis for several months. Currently not experiencing pain but she did experience pain this morning for approximately 10 minutes. She denies any vertigo sensation although she has had vertigo in the past and this feels different. She denies any shortness of breath, nausea or vomiting, abdominal pain, flank pain, cough or congestion, lower extremity edema or pain. She does note that she had diarrhea for 2 days, resolved yesterday. She notes that she is currently on vacation from [place], arrived 4 days ago, drove. She also notes to review of systems that she has had a pulsating frontal head discomfort for 4 months on a daily basis. Currently on Plavix and aspirin on a daily basis. She has no other complaints at this time. Seen in the room in the presence of her she is stable but states she has dizziness when moves her head from side to side no other symptomatology. had some episodes very brief lasts for seconds but now has weakness. CBC/BMP: 01/20/17 0440 01/20/17 0440 Significant Findings Laboratory Tests Test 01/19/17 01/19/17 01/19/17 01/20/17 12:45 14:38 21:25 04:40 Monocytes (%) (Auto) 8.6 % (0.0-8.0) 10.3 % (0.0-8.0) Potassium Level 3.0 MEQ/L (3.5-5.1) Chloride Level 109 MEQ/L 115 MEQ/L (98-107) (98-107) Estimat Glomerular Filtration 86 ML/MIN (>89) 77 ML/MIN (>89) Rate Troponin I LESS THAN 0.02 LESS THAN 0.02 LESS THAN 0.02 NG/ML NG/ML NG/ML (0.02-0.05) (0.02-0.05) (0.02-0.05) Red Blood Count 3.87 MIL/MM3 (4.00-5.30) Hemoglobin 11.4 GM/DL (11.6-15.3) Hematocrit 33.7 % (35.0-46.0) Calcium Level 8.3 MG/DL (8.5-10.1) Total Protein 5.8 GM/DL (6.4-8.2) Albumin 2.7 GM/DL (3.4-5.0) Imaging Last Impressions Chest X-Ray 01/19/17 1107 Signed Impressions: Service Date/Time: Thursday, January 19, 2017 11:24 - CONCLUSION: Hiatal hernia. No acute cardiopulmonary disease identified. Matt Guillen MD Head CT 01/19/17 0000 Signed Impressions: Service Date/Time: Thursday, January 19, 2017 11:28 - CONCLUSION: No acute intracranial findings. Matt Guillen MD PE at Discharge GENERAL: No acute distress. SKIN: Warm and dry. HEAD: Atraumatic. Normocephalic. EYES: Pupils equal and round. No scleral icterus. No injection or drainage. ENT: No nasal bleeding or discharge. Mucous membranes pink and moist. NECK: Trachea midline. No JVD. CARDIOVASCULAR: Regular rate and rhythm. No murmur appreciated. RESPIRATORY: No accessory muscle use. Clear to auscultation. Breath sounds equal bilaterally. GASTROINTESTINAL: Abdomen soft, non-tender, nondistended. Hepatic and splenic margins not palpable. MUSCULOSKELETAL: No obvious deformities. No edema. NEUROLOGICAL: Awake and alert. No obvious cranial nerve deficits. Motor grossly within normal limits. Normal speech. PSYCHIATRIC: Appropriate mood and affect; insight and judgment normal. Hospital Course This is a 71-year-old female who reports a history of coronary artery disease status post stenting on December 17, 2016, diabetes, hypertension, hyperlipidemia. She presents via EMS for evaluation of lightheadedness. She reports that this morning she has been experiencing lightheadedness which is reproduced when standing or walking. Seems to be improved when she is sitting or lying down. She had fleeting episodes of similar symptoms yesterday but less severe. She does also endorse and occasional left-sided chest pain on a essentially daily basis for several months. Currently not experiencing pain but she did experience pain this morning for approximately 10 minutes. She denies any vertigo sensation although she has had vertigo in the past and this feels different. She denies any shortness of breath, nausea or vomiting, abdominal pain, flank pain, cough or congestion, lower extremity edema or pain. She does note that she had diarrhea for 2 days, resolved yesterday. She notes that she is currently on vacation from [place], arrived 4 days ago, drove. She also notes to review of systems that she has had a pulsating frontal head discomfort for 4 months on a daily basis. Currently on Plavix and aspirin on a daily basis. Seen in her bedroom she is improving her dizziness, stable okay to discharge home, Echocardiogram performed EF 55-60%, Tricuspid Valve with Moderate to Severe regurgitation, Pulmonary Artery 36 mm Hg. for pulmonary Hypertension, will need to follow with her Primary auto transmission specialist, no acute coronary disease at this time, improving on Meclizine, will continue her Home medicines at discharge. Assessment and Plan 1. Pre Syncope patient has been hospitalized, asked for Cardiac Enzymes, cardiac Monitoring Oxygen as needed. probable vasovagal symptoms. IV fluids. the patient improved no clear if was related to vasovagal or has Peripheral vertigo she is improving with Meclizine, she also has controlled blood pressure on low side off anti hypertensives could be related to over medication will need to follow for titration with PCP. 2. Dizziness probable peripheral vertigo, giving her Meclizine will continue at home. 3. Weakness on hold antihypertensives, asked for PT and OT 4. CAD status post PCI and stent placement. Cardiac enzymes, Cardiac monitoring. Echocardiogram, Chest x ray Hiatal Hernia, CT brain no acute abnormalities, continue aspirin and Plavix. Echocardiogram EF 55-60%, Tricuspid Valve moderate to severe regurgitation Pulmonary artery pressure 36 mm Hg. will need to follow with her Primary auto transmission specialist. 5. Hypertension controlled on hold anti hypertensives will continue on Hold and will need to titrate with Primary Care Physician and 6. Hyperlipidemia continue home medicines 7. DM II controlled blood sugar on no medicines. could be a reason for her symptomatology. 8. GERD on PPIs 9. Bilateral leg pain chronic diagnosis continue home medicines 10. Hypokalemia replaced and following. DVT prophylaxis with Lovenox. Code Status Full code Discussed Condition With Patient and her in the room also explained that even given her home medicines she will need first to take her Meclizine 12.5 mg PRN for vertigo Blood sugar needs to be followed before taking her Home medicines and do not take her metformin and or Glipizide if the blood sugar is within normal limits her blood pressure is been within normal limits and not on medicines also will need to follow with her PCP to titrate her blood pressure medicines. PCP Doctor Aure Simmons Pt Condition on Discharge: Good Discharge Disposition: Discharge Home Discharge Time: <= 30 minutes Discharge Instructions DIET: Follow Instructions for: Heart Healthy Diet, Diabetic Diet Activities you can perform: Regular-No Restrictions Other Activity Instructions: Non driving a car while on Meclizine Froylan Duncan MD Jan 20, 2017 12:54
[2017-01-20] MEDS: ENOXAPARIN SODIUM 40 MG/0.4 ML SYRINGE SQ SCH (12:58)
== END 2017-01-20 16:05 | disposition home or self-care (01) ==
LOC: NEDAMB 09:04 → NEDA 14:13 → NEPHCDU 17:37
PROVIDERS: ADMIT Internal Medicine; ATTEND Internal Medicine
DX: R55 Syncope and collapse (principal); R42 Dizziness and giddiness; I25.10 Atherosclerotic heart disease of native coronary artery without angina pectoris; Z95.5 Presence of coronary angioplasty implant and graft; I10 Essential (primary) hypertension; E78.5 Hyperlipidemia, unspecified; E11.9 Type 2 diabetes mellitus without complications; R19.7 Diarrhea, unspecified; E78.00 Pure hypercholesterolemia, unspecified; K21.9 Gastro-esophageal reflux disease without esophagitis; K44.9 Diaphragmatic hernia without obstruction or gangrene; Z79.84 Long term (current) use of oral hypoglycemic drugs; Z79.01 Long term (current) use of anticoagulants; R07.9 Chest pain, unspecified; E87.6 Hypokalemia; R53.1 Weakness; I27.2 Other secondary pulmonary hypertension; I07.1 Rheumatic tricuspid insufficiency
CPT/HCPCS: 70450; 71010; 80048; 80076; 82550; 82948; 83690; 83735; 84484; 85025; 85610; 85730; 93005; 93306; 96360; 97166; 99285; G0378; G8987; G8988; G8989; J1650; J7030